=== PATIENT | male | born 1980 | race Caucasian/White ===

== ENCOUNTER 2023-08-12 21:24 | Emergency (ER) | payer OTHER, SELFPAY ==
[~2023-08-12] VITALS: Ht 177.8 cm; Wt 95.5 kg
[2023-08-12] MEDS ORDERED: NS 1,000 ML IV ONE (23:45)
[2023-08-13 00:32] LABS: BASO # 0.1 10^3/uL (0.0-0.2); BASO % 0.5 % (0.0-1.0); EOS # 0.2 10^3/uL (0.0-0.5); EOS % 1.9 % (0.0-3.0); HEMATOCRIT 42.5 % (42.0-52.0); HEMOGLOBIN 13.4 g/dl (13.5-17.5); LYMPH # 2.8 10^3/uL (1.5-5.0); LYMPH % 28.9 % (24.0-44.0); MEAN CORPUSCULAR HEMOGLOBIN 26.1 pg (27.0-33.0); MEAN CORPUSCULAR HGB CONC 31.5 g/dl (32.0-36.5); MEAN CORPUSCULAR VOLUME 82.8 fl (80.0-96.0); MONO # 0.9 10^3/uL (0.0-0.8); MONO % 9.3 % (2.0-8.0); NEUTROPHILS # 5.7 10^3/uL (1.5-8.5); NEUTROPHILS % 58.9 % (36.0-66.0); PLATELET COUNT, AUTOMATED 242 10^3/uL (150-450); RED BLOOD COUNT 5.13 10^6/uL (4.30-6.10); WHITE BLOOD COUNT 9.6 10^3/uL (4.0-10.0)
[2023-08-13 00:50] LABS: ETHYL ALCOHOL (ETHANOL) 0.003 % (0.000-0.010)
[2023-08-13 00:52] LABS: BLOOD UREA NITROGEN 10 MG/DL (9-23); CALCIUM LEVEL 9.9 MG/DL (8.5-10.1); CARBON DIOXIDE LEVEL 26 MMOL/L (20-31); CHLORIDE LEVEL 104 MMOL/L (98-107); CK-MB VALUE MASS < 1.0 NG/ML (<3.6); CPK CREATINE PHOSPHOKINASE 159 U/L (46-171); GLOMERULAR FILTRATION RATE > 60.0 (>60); GLUCOSE, FASTING 93 MG/DL (60-100); MB/CK RELATIVE INDEX 0.62 (< OR =4); POTASSIUM SERUM 4.1 MMOL/L (3.5-5.1); SODIUM LEVEL 137 MMOL/L (136-145)
[2023-08-13 00:54] LABS: THYROID STIMULATING HORMONE 0.734 uIU/ML (0.55-4.78)
[2023-08-13 05:21] LABS: CK-MB VALUE MASS < 1.0 NG/ML (<3.6); CPK CREATINE PHOSPHOKINASE 125 U/L (46-171)
[2023-08-13 06:18] LABS: BARBITURATES URINE NEGATIVE (NEGATIVE); BENZODIAZEPINES URINE NEGATIVE (NEGATIVE); CANNABINOIDS URINE NEGATIVE (NEGATIVE); METHADONE URINE NEGATIVE (NEGATIVE); OPIATES URINE NEGATIVE (NEGATIVE); PHENCYCLIDINE URINE NEGATIVE (NEGATIVE)
[2023-08-13 06:19] LABS: AMPHETAMINES LEVEL URINE POSITIVE (NEGATIVE); COCAINE METABOLITE URINE POSITIVE (NEGATIVE)
[2023-08-13 06:22] VITALS: BP 122/66; O2SAT 98
[2023-08-13 06:52] VITALS: TEMP 98
== END 2023-08-13 06:54 | disposition home or self-care (01) ==
LOC: M ED 21:24
DX: R55 Syncope and collapse (principal); F90.9 Attention-deficit hyperactivity disorder, unspecified type; F17.200 Nicotine dependence, unspecified, uncomplicated; F12.10 Cannabis abuse, uncomplicated; F10.10 Alcohol abuse, uncomplicated; Z91.040 Latex allergy status

== ENCOUNTER 2024-01-14 00:39 | Emergency (ER) | payer SELFPAY ==
[~2024-01-14] VITALS: Ht 177.8 cm; Wt 91.0 kg
[2024-01-14] MEDS ORDERED: ADDE30CA3 PO (00:50)
[2024-01-14] MEDS ORDERED: ADDE1TAB14 PO (00:50)
[2024-01-14] MEDS ORDERED: CLON2TAB14 PO (00:53)
[2024-01-14 01:10] LABS: BASO % 0.5 % (0.0-1.0); EOS # 0.2 10^3/uL (0.0-0.5); EOS % 2.4 % (0.0-3.0); HEMATOCRIT 41.5 % (42.0-52.0); HEMOGLOBIN 13.2 g/dl (13.5-17.5); LYMPH # 2.1 10^3/uL (1.5-5.0); LYMPH % 33.7 % (24.0-44.0); MEAN CORPUSCULAR HGB CONC 31.8 g/dl (32.0-36.5); MEAN CORPUSCULAR VOLUME 81.9 fl (80.0-96.0); MONO # 0.6 10^3/uL (0.0-0.8); NEUTROPHILS # 3.4 10^3/uL (1.5-8.5); NEUTROPHILS % 54.1 % (36.0-66.0); PLATELET COUNT, AUTOMATED 209 10^3/uL (150-450); RED BLOOD COUNT 5.07 10^6/uL (4.30-6.10); WHITE BLOOD COUNT 6.2 10^3/uL (4.0-10.0)
[2024-01-14 01:38] LABS: LIPASE 39 U/L (12-53)
[2024-01-14 01:41] LABS: ALBUMIN 3.7 G/DL (3.2-5.2); ALKALINE PHOSPHATASE 65 U/L (46-116); ALT/SGPT 21 U/L (7.0-40); AST/SGOT 19 U/L (<34); BILIRUBIN,DIRECT < 0.1 MG/DL (<0.4); BILIRUBIN,TOTAL 0.3 MG/DL (0.3-1.2); BLOOD UREA NITROGEN 10 MG/DL (9-23); CALCIUM LEVEL 8.6 MG/DL (8.5-10.1); CARBON DIOXIDE LEVEL 25 MMOL/L (20-31); CHLORIDE LEVEL 111 MMOL/L (98-107); CK-MB VALUE MASS < 1.0 NG/ML (<3.6); CPK CREATINE PHOSPHOKINASE 90 U/L (46-171); CREATININE FOR GFR 0.81 MG/DL (0.70-1.30); GLOMERULAR FILTRATION RATE > 60.0 (>60); GLUCOSE, FASTING 118 MG/DL (60-100); MB/CK RELATIVE INDEX 1.11 (< OR =4); POTASSIUM SERUM 4.1 MMOL/L (3.5-5.1); SODIUM LEVEL 142 MMOL/L (136-145); TOTAL PROTEIN 6.4 G/DL (5.7-8.2)
[2024-01-14 03:20] LABS: CK-MB VALUE MASS < 1.0 NG/ML (<3.6)
[2024-01-14 03:21] LABS: CPK CREATINE PHOSPHOKINASE 89 U/L (46-171); MB/CK RELATIVE INDEX 1.12 (< OR =4)
[2024-01-14] MEDS ORDERED: ISOVUE-370 76% 100ML VIAL As Ordered ONE (03:47)
[2024-01-14 05:10] LABS: BARBITURATES URINE NEGATIVE (NEGATIVE); BENZODIAZEPINES URINE NEGATIVE (NEGATIVE); COCAINE METABOLITE URINE NEGATIVE (NEGATIVE); METHADONE URINE NEGATIVE (NEGATIVE); OPIATES URINE NEGATIVE (NEGATIVE); PHENCYCLIDINE URINE NEGATIVE (NEGATIVE)
[2024-01-14 05:22] LABS: AMPHETAMINES LEVEL URINE POSITIVE (NEGATIVE); CANNABINOIDS URINE POSITIVE (NEGATIVE)
[2024-01-14 06:00] VITALS: BP 132/89; TEMP 98; O2SAT 99
== END 2024-01-14 06:36 | disposition home or self-care (01) ==
LOC: M ED 00:39
DX: R10.32 Left lower quadrant pain (principal); K76.0 Fatty (change of) liver, not elsewhere classified; F90.9 Attention-deficit hyperactivity disorder, unspecified type; F12.10 Cannabis abuse, uncomplicated; F17.200 Nicotine dependence, unspecified, uncomplicated; Z91.040 Latex allergy status; Z79.899 Other long term (current) drug therapy
CPT/HCPCS: 36415; 71045; 71275; 74177; 80053; 80307; 81001; 82248; 82550; 82553; 83690; 84484; 85025; 93005; 93041; 94760; 99285; Q9967

== ENCOUNTER 2024-04-13 15:07 | Emergency (ER) | payer OTHER, SELFPAY ==
[~2024-04-13] VITALS: Ht 177.8 cm; Wt 86.5 kg
[~2024-04-13 15:07] MED LIST: ADDE1TAB14 PO; ADDE30CA3 PO; CLON2TAB14 PO
[2024-04-13 18:01] VITALS: BP 120/84; TEMP 98.2; O2SAT 100
== END 2024-04-13 18:00 | disposition home or self-care (01) ==
LOC: M ED 15:07
DX: G56.31 Lesion of radial nerve, right upper limb (principal); F40.9 Phobic anxiety disorder, unspecified; F41.9 Anxiety disorder, unspecified; F17.200 Nicotine dependence, unspecified, uncomplicated; Z91.040 Latex allergy status; Z79.899 Other long term (current) drug therapy

== ENCOUNTER 2024-06-27 17:42 | Emergency (ER) | payer MEDICAID ==
[~2024-06-27] VITALS: Ht 177.8 cm; Wt 81.4 kg
[2024-06-27 17:45] VITALS: BP 130/87; TEMP 97; O2SAT 100
[2024-06-30] MEDS ORDERED: NEOM10DR2 AD (20:00)
== END 2024-06-27 19:27 | disposition left against medical advice (07) ==
LOC: M ED 17:42
DX: Z53.21 Procedure and treatment not carried out due to patient leaving prior to being seen by health care provider (principal)

== ENCOUNTER → 2024-09-11 | Outpatient (REF) | payer OTHER ==
[~2024-09-11] MED LIST changes: +NEOM10DR2 AD
[2024-09-11 14:02] LABS: HEMATOCRIT 42.2 % (42.0-52.0); HEMOGLOBIN 13.1 g/dl (13.5-17.5); MEAN CORPUSCULAR HEMOGLOBIN 25.6 pg (27.0-33.0); MEAN CORPUSCULAR VOLUME 82.4 fl (80.0-96.0); PLATELET COUNT, AUTOMATED 186 10^3/uL (150-450); RED BLOOD COUNT 5.12 10^6/uL (4.30-6.10); WHITE BLOOD COUNT 5.4 10^3/uL (4.0-10.0)
[2024-09-11 14:22] LABS: ALBUMIN 3.8 G/DL (3.2-5.2); ALKALINE PHOSPHATASE 65 U/L (40-129); ALT/SGPT 32 U/L (7.0-40); AST/SGOT 20 U/L (<34); BILIRUBIN,TOTAL 0.3 MG/DL (0.3-1.2); BLOOD UREA NITROGEN 11 MG/DL (9-23); CALCIUM LEVEL 8.7 MG/DL (8.5-10.1); CARBON DIOXIDE LEVEL 29 MMOL/L (20-31); CHLORIDE LEVEL 111 MMOL/L (98-107); CHOLESTEROL LEVEL 124 MG/DL (<200); CHOLESTEROL RISK RATIO 2.94 (<5); CREATININE FOR GFR 0.73 MG/DL (0.70-1.30); GLOMERULAR FILTRATION RATE > 60.0 (>60); GLUCOSE, FASTING 106 MG/DL (60-100); HDL CHOLESTEROL 42.1 MG/DL (>40); LDL CHOLESTEROL 68.1 MG/DL (<100); NON-HDL-C 81.9 MG/DL; POTASSIUM SERUM 4.6 MMOL/L (3.5-5.1); SODIUM LEVEL 147 MMOL/L (136-145); TOTAL PROTEIN 6.8 G/DL (5.7-8.2); TRIGLYCERIDES LEVEL 69 MG/DL (<150)
[2024-09-11 14:25] LABS: THYROID STIMULATING HORMONE 0.984 uIU/ML (0.55-4.78)
[2024-09-11 14:26] LABS: TOTAL 25(OH) VITAMIN D 32.4 NG/ML (20.0-100.0)
== END ==
LOC: M LAB REF 12:39
PROVIDERS: ATTEND Student in an Organized Health Care Education/Training Program
DX: Z00.01 Encounter for general adult medical examination with abnormal findings (principal)

== ENCOUNTER 2024-09-17 17:30 | Emergency (ER) | payer OTHER ==
[~2024-09-17] VITALS: Ht 177.8 cm; Wt 82.5 kg
[2024-09-17 19:36] VITALS: BP 128/85; TEMP 97.8; O2SAT 100
[2024-09-17] MEDS ORDERED: TRIA1CR80 TOP (20:37)
== END 2024-09-17 20:55 | disposition home or self-care (01) ==
LOC: M ED 17:30
DX: L20.9 Atopic dermatitis, unspecified (principal); Z88.8 Allergy status to other drugs, medicaments and biological substances; Z91.040 Latex allergy status; Z79.899 Other long term (current) drug therapy; Z79.52 Long term (current) use of systemic steroids

== ENCOUNTER 2024-09-25 18:57 | Emergency (ER) | payer OTHER ==
[~2024-09-25] VITALS: Ht 177.8 cm; Wt 80.5 kg
[~2024-09-25 18:57] MED LIST changes: +TRIA1CR80 TOP
[2024-09-25 19:36] LABS: BASO % 0.9 % (0.0-1.0); EOS # 0.3 10^3/uL (0.0-0.5); EOS % 5.4 % (0.0-3.0); HEMATOCRIT 41.4 % (42.0-52.0); LYMPH # 1.1 10^3/uL (1.5-5.0); LYMPH % 24.4 % (24.0-44.0); MEAN CORPUSCULAR HEMOGLOBIN 25.6 pg (27.0-33.0); MEAN CORPUSCULAR HGB CONC 31.4 g/dl (32.0-36.5); MEAN CORPUSCULAR VOLUME 81.7 fl (80.0-96.0); MONO # 0.6 10^3/uL (0.0-0.8); MONO % 13.1 % (2.0-8.0); NEUTROPHILS # 2.6 10^3/uL (1.5-8.5); PLATELET COUNT, AUTOMATED 183 10^3/uL (150-450); RED BLOOD COUNT 5.07 10^6/uL (4.30-6.10); WHITE BLOOD COUNT 4.6 10^3/uL (4.0-10.0)
[2024-09-25 19:51] LABS: VENOUS BASE EXCESS 1.4 (-2.0-2.0); VENOUS HCO3 28.3 MMOL/L (23.0-27.0); VENOUS O2 SATURATION 46.5 % (60.0-80.0); VENOUS PARTIAL PRESSURE CO2 54.5 mmHg (38.0-50.0); VENOUS PARTIAL PRESSURE O2 25.7 mmHg (30.0-50.0); VENOUS PH 7.334 UNITS (7.330-7.430); VENOUS STANDARD HCO3 24.5 MMOL/L
[2024-09-25 20:00] LABS: ETHYL ALCOHOL (ETHANOL) 0.006 % (0.000-0.010)
[2024-09-25 20:02] LABS: BLOOD UREA NITROGEN 19 MG/DL (9-23); CALCIUM LEVEL 9.5 MG/DL (8.5-10.1); CARBON DIOXIDE LEVEL 29 MMOL/L (20-31); CHLORIDE LEVEL 108 MMOL/L (98-107); CK-MB VALUE MASS < 1.0 NG/ML (<3.6); CPK CREATINE PHOSPHOKINASE 89 U/L (46-171); CREATININE FOR GFR 0.72 MG/DL (0.70-1.30); GLOMERULAR FILTRATION RATE > 60.0 (>60); GLUCOSE, FASTING 96 MG/DL (60-100); MAGNESIUM LEVEL 1.8 MG/DL (1.8-2.4); MB/CK RELATIVE INDEX 1.12 (< OR =4); POTASSIUM SERUM 4.1 MMOL/L (3.5-5.1); SODIUM LEVEL 147 MMOL/L (136-145)
[2024-09-25 20:03] LABS: FREE T4 1.39 NG/DL (0.89-1.76)
[2024-09-25 20:04] LABS: THYROID STIMULATING HORMONE 0.712 uIU/ML (0.55-4.78)
[2024-09-25 20:15] LABS: INR 0.96; PARTIAL THROMBOPLASTIN TIME 28.7 SECONDS (24.8-34.2); PROTHROMBIN TIME 13.1 SECONDS (12.5-14.5)
[2024-09-25] MEDS ORDERED: ISOVUE-370 76% 100ML VIAL As Ordered ONE (20:26)
[2024-09-25 22:05] LABS: BARBITURATES URINE NEGATIVE (NEGATIVE); BENZODIAZEPINES URINE NEGATIVE (NEGATIVE); CANNABINOIDS URINE NEGATIVE (NEGATIVE); COCAINE METABOLITE URINE NEGATIVE (NEGATIVE); METHADONE URINE NEGATIVE (NEGATIVE); OPIATES URINE NEGATIVE (NEGATIVE); PHENCYCLIDINE URINE NEGATIVE (NEGATIVE)
[2024-09-25 22:10] LABS: AMPHETAMINES LEVEL URINE POSITIVE (NEGATIVE)
[2024-09-25 22:45] VITALS: TEMP 97.6
[2024-09-25 23:30] VITALS: BP 130/76; O2SAT 100
== END 2024-09-26 00:02 | disposition home or self-care (01) ==
LOC: M ED 18:57
DX: R55 Syncope and collapse (principal); F41.9 Anxiety disorder, unspecified; M85.80 Other specified disorders of bone density and structure, unspecified site; M47.892 Other spondylosis, cervical region; F90.9 Attention-deficit hyperactivity disorder, unspecified type; F17.200 Nicotine dependence, unspecified, uncomplicated; F12.10 Cannabis abuse, uncomplicated; Z88.8 Allergy status to other drugs, medicaments and biological substances; Z91.040 Latex allergy status; Z79.899 Other long term (current) drug therapy
CPT/HCPCS: 36415; 70450; 70496; 70498; 71045; 72125; 80048; 80307; 82077; 82550; 82553; 82803; 83735; 84439; 84443; 84484; 85025; 85610; 85730; 87486; 87581; 87633; 87798; 93005; 93041; 94760; 99285; Q9967

== ENCOUNTER 2024-10-18 15:40 | Emergency (ER) | payer OTHER ==
[~2024-10-18] VITALS: Ht 177.8 cm; Wt 79.8 kg
[2024-10-18 16:17] LABS: HEMATOCRIT 43.4 % (42.0-52.0); HEMOGLOBIN 13.3 g/dl (13.5-17.5); MEAN CORPUSCULAR HEMOGLOBIN 25.6 pg (27.0-33.0); MEAN CORPUSCULAR HGB CONC 30.6 g/dl (32.0-36.5); MEAN CORPUSCULAR VOLUME 83.5 fl (80.0-96.0); PLATELET COUNT, AUTOMATED 192 10^3/uL (150-450); WHITE BLOOD COUNT 6.7 10^3/uL (4.0-10.0)
[2024-10-18 16:40] LABS: ETHYL ALCOHOL (ETHANOL) < 0.003 % (0.000-0.010)
[2024-10-18 16:41] LABS: SALICYLATE LEVEL < 3.0 MG/DL (<30)
[2024-10-18 16:42] LABS: ALBUMIN 3.9 G/DL (3.2-5.2); ALKALINE PHOSPHATASE 78 U/L (40-129); ALT/SGPT 40 U/L (7.0-40); AST/SGOT 20 U/L (<34); BILIRUBIN,DIRECT 0.1 MG/DL (<0.4); BILIRUBIN,TOTAL 0.3 MG/DL (0.3-1.2); BLOOD UREA NITROGEN 13 MG/DL (9-23); CALCIUM LEVEL 9.7 MG/DL (8.5-10.1); CARBON DIOXIDE LEVEL 29 MMOL/L (20-31); CHLORIDE LEVEL 111 MMOL/L (98-107); CREATININE FOR GFR 0.81 MG/DL (0.70-1.30); GLOMERULAR FILTRATION RATE > 60.0 (>60); GLUCOSE, FASTING 112 MG/DL (60-100); POTASSIUM SERUM 4.1 MMOL/L (3.5-5.1); SODIUM LEVEL 148 MMOL/L (136-145)
[2024-10-18 17:47] LABS: BARBITURATES URINE NEGATIVE (NEGATIVE); BENZODIAZEPINES URINE NEGATIVE (NEGATIVE); CANNABINOIDS URINE NEGATIVE (NEGATIVE); COCAINE METABOLITE URINE NEGATIVE (NEGATIVE); METHADONE URINE NEGATIVE (NEGATIVE); OPIATES URINE NEGATIVE (NEGATIVE); PHENCYCLIDINE URINE NEGATIVE (NEGATIVE)
[2024-10-18 17:49] LABS: AMPHETAMINES LEVEL URINE POSITIVE (NEGATIVE)
[2024-10-18 20:57] VITALS: BP 148/87; TEMP 98.7; O2SAT 100
== END 2024-10-18 20:58 | disposition home or self-care (01) ==
LOC: M ED 15:40
DX: Z04.6 Encounter for general psychiatric examination, requested by authority (principal); F90.9 Attention-deficit hyperactivity disorder, unspecified type; Z91.040 Latex allergy status; Z88.8 Allergy status to other drugs, medicaments and biological substances; Z79.899 Other long term (current) drug therapy

== ENCOUNTER 2024-10-23 19:18 | Emergency (ER) | payer OTHER ==
[~2024-10-23] VITALS: Ht 177.8 cm; Wt 81.2 kg
[2024-10-23 19:25] VITALS: BP 129/84; TEMP 99.1; O2SAT 99
== END 2024-10-23 21:00 | disposition left against medical advice (07) ==
LOC: M ED 19:18
DX: Z53.21 Procedure and treatment not carried out due to patient leaving prior to being seen by health care provider (principal)

== ENCOUNTER 2024-11-15 15:01 | Emergency (ER) | payer OTHER ==
[~2024-11-15] VITALS: Ht 177.8 cm; Wt 79.9 kg
[2024-11-15] MEDS ORDERED: AMPH1CAP5 (15:17)
[2024-11-15] MEDS: diphenhydrAMINE 50MG CAP PO ONE (18:58)
[2024-11-15] MEDS: methylPREDNISolone 125MG 2ML VIAL IV ONE (18:58)
[2024-11-15] MEDS: NS (Normal Saline) 0.9% 1,000 ML IV ONE (18:59)
[2024-11-15 19:15] LABS: C REACTIVE PROTEIN QUANTITATIV 2.38 MG/DL (<1.0)
[2024-11-15 19:22] LABS: ALBUMIN 3.9 G/DL (3.2-5.2); ALKALINE PHOSPHATASE 72 U/L (40-129); ALT/SGPT 38 U/L (7.0-40); AST/SGOT 51 U/L (<34); BILIRUBIN,DIRECT 0.1 MG/DL (<0.4); BILIRUBIN,TOTAL 0.5 MG/DL (0.3-1.2); BLOOD UREA NITROGEN 16 MG/DL (9-23); CALCIUM LEVEL 9.3 MG/DL (8.5-10.1); CARBON DIOXIDE LEVEL 28 MMOL/L (20-31); CHLORIDE LEVEL 108 MMOL/L (98-107); CPK CREATINE PHOSPHOKINASE 167 U/L (46-171); CREATININE FOR GFR 0.69 MG/DL (0.70-1.30); GLOMERULAR FILTRATION RATE > 60.0 (>60); GLUCOSE, FASTING 93 MG/DL (60-100); POTASSIUM SERUM 5.4 MMOL/L (3.5-5.1); RHEUMATOID FACTOR QUANT < 3.5 IU/ML (<14); SODIUM LEVEL 143 MMOL/L (136-145)
[2024-11-15 19:44] LABS: BASO % 0.8 % (0.0-1.0); EOS # 0.4 10^3/uL (0.0-0.5); EOS % 6.8 % (0.0-3.0); HEMATOCRIT 38.4 % (42.0-52.0); HEMOGLOBIN 12.1 g/dl (13.5-17.5); LYMPH # 1.4 10^3/uL (1.5-5.0); LYMPH % 26.1 % (24.0-44.0); MEAN CORPUSCULAR HEMOGLOBIN 26.2 pg (27.0-33.0); MEAN CORPUSCULAR HGB CONC 31.5 g/dl (32.0-36.5); MEAN CORPUSCULAR VOLUME 83.1 fl (80.0-96.0); MONO # 0.7 10^3/uL (0.0-0.8); MONO % 13.8 % (2.0-8.0); NEUTROPHILS # 2.8 10^3/uL (1.5-8.5); NEUTROPHILS % 52.1 % (36.0-66.0); PLATELET COUNT, AUTOMATED 170 10^3/uL (150-450); RED BLOOD COUNT 4.62 10^6/uL (4.30-6.10); WHITE BLOOD COUNT 5.3 10^3/uL (4.0-10.0)
[2024-11-15 19:54] LABS: ERYTHROCYTE SEDIMENTATION RATE 12 mm/hr (0-15)
[2024-11-15] MEDS ORDERED: DOXY-441 PO (20:34)
[2024-11-15] MEDS ORDERED: MEDR4TAB PO (20:35)
[2024-11-15] MEDS ORDERED: CETI10CH PO (20:35)
[2024-11-15] MEDS ORDERED: NYST-38 PO (20:36)
[2024-11-15] MEDS ORDERED: PERM60CR8 TOP (20:36)
[2024-11-15] MEDS ORDERED: FLUC150T9 PO (20:38)
[2024-11-15 21:30] VITALS: BP 113/65; TEMP 97.7; O2SAT 98
[2024-11-18 13:32] LABS: ANA SCREEN, IFA NEGATIVE (NEGATIVE)
== END 2024-11-15 21:47 | disposition home or self-care (01) ==
LOC: M ED 15:01
DX: B86 Scabies (principal); B37.81 Candidal esophagitis; L53.9 Erythematous condition, unspecified; L20.9 Atopic dermatitis, unspecified; F90.9 Attention-deficit hyperactivity disorder, unspecified type; J45.909 Unspecified asthma, uncomplicated; F41.9 Anxiety disorder, unspecified; F17.200 Nicotine dependence, unspecified, uncomplicated; F12.10 Cannabis abuse, uncomplicated; Z88.8 Allergy status to other drugs, medicaments and biological substances; Z91.040 Latex allergy status; Z79.899 Other long term (current) drug therapy
CPT/HCPCS: 80048; 80076; 82550; 84132; 85025; 85652; 86038; 86140; 86431; 87468; 87469; 87478; 87484; 87801; 96374; 99284; J2919

== ENCOUNTER 2024-12-25 10:22 | Emergency (ER) | payer OTHER ==
[~2024-12-25] VITALS: Ht 177.8 cm; Wt 76.6 kg
[~2024-12-25 10:22] MED LIST changes: +AMPH1CAP5; +CETI10CH PO; +DOXY-441 PO; +FLUC150T9 PO; +MEDR4TAB PO; +NYST-38 PO; +PERM60CR8 TOP
[2024-12-25] MEDS ORDERED: ISOVUE-370 76% 100ML VIAL As Ordered ONE (11:11)
[2024-12-25 11:40] LABS: BASO % 0.7 % (0.0-1.0); HEMATOCRIT 41.7 % (42.0-52.0); HEMOGLOBIN 13.2 g/dl (13.5-17.5); LYMPH % 24.8 % (24.0-44.0); MEAN CORPUSCULAR HEMOGLOBIN 25.8 pg (27.0-33.0); MEAN CORPUSCULAR HGB CONC 31.7 g/dl (32.0-36.5); MEAN CORPUSCULAR VOLUME 81.6 fl (80.0-96.0); MONO # 0.6 10^3/uL (0.0-0.8); MONO % 14.6 % (2.0-8.0); NEUTROPHILS # 2.4 10^3/uL (1.5-8.5); NEUTROPHILS % 58.4 % (36.0-66.0); PLATELET COUNT, AUTOMATED 168 10^3/uL (150-450); RED BLOOD COUNT 5.11 10^6/uL (4.30-6.10); WHITE BLOOD COUNT 4.1 10^3/uL (4.0-10.0)
[2024-12-25 12:01] LABS: ETHYL ALCOHOL (ETHANOL) < 0.003 % (0.000-0.010)
[2024-12-25 12:03] LABS: ALBUMIN 3.5 G/DL (3.2-5.2); ALKALINE PHOSPHATASE 63 U/L (40-129); ALT/SGPT 31 U/L (7.0-40); AST/SGOT 15 U/L (<34); BILIRUBIN,DIRECT 0.2 MG/DL (<0.4); BILIRUBIN,TOTAL 0.4 MG/DL (0.3-1.2); BLOOD UREA NITROGEN 12 MG/DL (9-23); CALCIUM LEVEL 9.3 MG/DL (8.5-10.1); CARBON DIOXIDE LEVEL 27 MMOL/L (20-31); CHLORIDE LEVEL 104 MMOL/L (98-107); CREATININE FOR GFR 0.63 MG/DL (0.70-1.30); GLOMERULAR FILTRATION RATE > 90.0 (>60); GLUCOSE, FASTING 116 MG/DL (60-100); POTASSIUM SERUM 4.4 MMOL/L (3.5-5.1); SALICYLATE LEVEL < 3.0 MG/DL (<30); SODIUM LEVEL 140 MMOL/L (136-145); TOTAL PROTEIN 6.4 G/DL (5.7-8.2)
[2024-12-25] MEDS: LIDOCAINE 2% 5ML JELLY UROJET TOP ONE (12:41)
[2024-12-25] MEDS: levETIRAcetam INJection 1,000 MG in IV 1 EA IV ONE (13:15)
[2024-12-25] MEDS: dexAMETHasone 20MG/5ML VIAL IV ONE (14:31)
[2024-12-25] MEDS: NS (Normal Saline) 0.9% 1,000 ML IV SCH (14:31)
[2024-12-25 14:44] LABS: Trichomonas vaginalis (AMP) NOT DETECTED (NEGATIVE)
[2024-12-25 14:59] VITALS: BP 127/67; TEMP 98; O2SAT 99
[2024-12-25 15:08] LABS: GC DNA AMPLIFICATION NEGATIVE (NEGATIVE)
[2024-12-25 15:43] LABS: AMPHETAMINES LEVEL URINE NEGATIVE (NEGATIVE); BARBITURATES URINE NEGATIVE (NEGATIVE); BENZODIAZEPINES URINE NEGATIVE (NEGATIVE); CANNABINOIDS URINE NEGATIVE (NEGATIVE); COCAINE METABOLITE URINE NEGATIVE (NEGATIVE); METHADONE URINE NEGATIVE (NEGATIVE); OPIATES URINE NEGATIVE (NEGATIVE); PHENCYCLIDINE URINE NEGATIVE (NEGATIVE)
== END 2024-12-25 15:01 | disposition short-term general hospital (02) ==
LOC: M ED 10:22 → EDBD 10:22 → M ED 15:01
DX: R90.0 Intracranial space-occupying lesion found on diagnostic imaging of central nervous system (principal); G23.8 Other specified degenerative diseases of basal ganglia; F32.A Depression, unspecified; F41.9 Anxiety disorder, unspecified; F90.9 Attention-deficit hyperactivity disorder, unspecified type; F12.10 Cannabis abuse, uncomplicated; F17.200 Nicotine dependence, unspecified, uncomplicated; Z79.899 Other long term (current) drug therapy; Z88.8 Allergy status to other drugs, medicaments and biological substances; Z91.040 Latex allergy status
CPT/HCPCS: 70450; 70496; 70498; 80047; 80048; 80076; 80143; 80307; 82077; 85025; 86780; 87486; 87581; 87633; 87661; 87798; 87810; 87850; 93005; 96361; 96365; 96375; 99285; J1100; J1953; Q9967

== ENCOUNTER → 2025-04-02 | Outpatient (CLI) | payer OTHER ==
[~2025-04-02] MED LIST changes: +ACET-907 PO; -AMPH1CAP5; +AMPH1CAP5 PO; +ATOV5SUS PO; +BIKT1TAB PO; +CLEO300C2 PO; +DOXY100T27 PO; +FAMO40TA3 PO; +GNPTAB36 PO; +LEUC25TA PO; +MELA3TAB30 PO; +PYRI25TA PO; +TRAZ-252 PO
[2025-04-02 16:00] LABS: ALT/SGPT 17.0 U/L (7.0-40); AST/SGOT 13.0 U/L (<34); CALCIUM LEVEL 10.6 MG/DL (8.5-10.1); CARBON DIOXIDE LEVEL 29.0 MMOL/L (20-31); CHLORIDE LEVEL 103.0 MMOL/L (98-107); CREATININE FOR GFR 1.26 MG/DL (0.70-1.30); GLOMERULAR FILTRATION RATE 72.1 (>60); POTASSIUM SERUM 4.9 MMOL/L (3.5-5.1); SODIUM LEVEL 141.0 MMOL/L (136-145)
[2025-04-04 22:33] LABS: HIV-1 RNA PCR QUANT 2 54 copies/mL (NOT DETECTED); HIV-1 RNA PCR QUANT 3 1.73 (NOT DETECTED)
[2025-04-05 19:41] LABS: % CD4 17 % (30-61); %CD8 47 % (12-42); ABSOLUTE CD4 CELLS 274 cells/uL (490-1740); ABSOLUTE CD8 CELLS 758 cells/uL (180-1170); ABSOLUTE LYMPHOCYTES 1616 cells/uL (850-3900); CD4 CD8 RATIO 0.36 (0.86-5.00)
== END ==
LOC: M PLALAB 11:55
PROVIDERS: ATTEND Internal Medicine Infectious Disease
DX: B20 Human immunodeficiency virus [HIV] disease (principal)

== ENCOUNTER → 2025-04-13 | Outpatient (CLI) | payer OTHER ==
[~2025-04-13] MED LIST changes: +PROHANCE 279.3MG/ML 15ML VIAL ONE
== END ==
LOC: M PLAIMG 09:06
PROVIDERS: ATTEND Physician Assistant
DX: B58.2 Toxoplasma meningoencephalitis (principal)
CPT/HCPCS: 70553; A9576

== ENCOUNTER → 2025-07-02 | Outpatient (CLI) | payer OTHER ==
[~2025-07-02] MED LIST changes: -PROHANCE 279.3MG/ML 15ML VIAL ONE
[2025-07-02 15:35] LABS: ALT/SGPT 19 U/L (7.0-40); AST/SGOT 14 U/L (<34); CALCIUM LEVEL 10.0 MG/DL (8.5-10.1); CARBON DIOXIDE LEVEL 29 MMOL/L (20-31); CHLORIDE LEVEL 107 MMOL/L (98-107); CREATININE FOR GFR 1.06 MG/DL (0.70-1.30); GLOMERULAR FILTRATION RATE 88.8 (>60); POTASSIUM SERUM 5.4 MMOL/L (3.5-5.1); SODIUM LEVEL 143 MMOL/L (136-145)
[2025-07-04 18:44] LABS: % CD4 24 % (30-61); %CD8 45 % (12-42); ABSOLUTE CD4 CELLS 290 cells/uL (490-1740); ABSOLUTE CD8 CELLS 545 cells/uL (180-1170); ABSOLUTE LYMPHOCYTES 1215 cells/uL (850-3900); CD4 CD8 RATIO 0.53 (0.86-5.00)
[2025-07-05 01:02] LABS: HIV-1 RNA PCR QUANT 2 NOT DETECTED copies/mL (NOT DETECTED); HIV-1 RNA PCR QUANT 3 NOT DETECTED (NOT DETECTED)
== END ==
LOC: M PLALAB 12:33
PROVIDERS: ATTEND Internal Medicine Infectious Disease
DX: A53.9 Syphilis, unspecified (principal); B20 Human immunodeficiency virus [HIV] disease

== ENCOUNTER → 2025-07-27 | Outpatient (CLI) | payer OTHER ==
[~2025-07-27] MED LIST changes: +CLOT1CRE56 TOP; +FLUO1TAB3 PO; +HYDR2.5C TOP; +PANT40TA29 PO; +PROHANCE 279.3MG/ML 15ML VIAL As Ordered ONE; +SULF500T56 PO; +TRAZ-257 PO
== END ==
LOC: M RAD 07:50
PROVIDERS: ATTEND Neurological Surgery
DX: B58.2 Toxoplasma meningoencephalitis (principal)
CPT/HCPCS: 70553; A9579

== ENCOUNTER 2025-07-29 14:36 | Inpatient (IN) | payer OTHER ==
[~2025-07-29] VITALS: Ht 177.8 cm; Wt 82.0 kg
[~2025-07-29 14:36] MED LIST changes: -CLOT1CRE56 TOP; -FLUO1TAB3 PO; -HYDR2.5C TOP; -PANT40TA29 PO; -PROHANCE 279.3MG/ML 15ML VIAL As Ordered ONE; -SULF500T56 PO; -TRAZ-257 PO
[2025-07-29] MEDS ORDERED: FLUO1TAB3 PO (15:05)
[2025-07-29] MEDS ORDERED: SULF500T56 PO (15:05)
[2025-07-29] MEDS ORDERED: TRAZ-257 PO (15:05)
[2025-07-29] MEDS ORDERED: PANT40TA29 PO (15:05)
[2025-07-29] MEDS ORDERED: HYDR2.5C TOP (15:06)
[2025-07-29 15:25] LABS: BASO # 0.1 10^3/uL (0.0-0.2); BASO % 0.7 % (0.0-1.0); EOS # 0.1 10^3/uL (0.0-0.5); EOS % 0.8 % (0.0-3.0); LYMPH # 1.2 10^3/uL (1.5-5.0); LYMPH % 13.9 % (24.0-44.0); MONO # 0.7 10^3/uL (0.0-0.8); MONO % 8.0 % (2.0-8.0); NEUTROPHILS # 6.7 10^3/uL (1.5-8.5); NEUTROPHILS % 76.0 % (36.0-66.0); PLATELET COUNT, AUTOMATED 294 10^3/uL (150-450)
[2025-07-29 15:47] LABS: OSMOLALITY SERUM 293 MOSM/KG (275-295)
[2025-07-29 15:51] LABS: ETHYL ALCOHOL (ETHANOL) 0.005 % (0.000-0.010)
[2025-07-29 15:53] LABS: ALT/SGPT 15 U/L (7.0-40); AST/SGOT 17 U/L (<34); CALCIUM LEVEL 9.6 MG/DL (8.5-10.1); CARBON DIOXIDE LEVEL 29 MMOL/L (20-31); CHLORIDE LEVEL 109 MMOL/L (98-107); CREATININE FOR GFR 1.06 MG/DL (0.70-1.30); GLOMERULAR FILTRATION RATE 88.8 (>60); MAGNESIUM LEVEL 2.0 MG/DL (1.8-2.4); POTASSIUM SERUM 4.7 MMOL/L (3.5-5.1); SODIUM LEVEL 145 MMOL/L (136-145)
[2025-07-29] MEDS ORDERED: CLOT1CRE56 TOP (16:53)
[2025-07-29] MEDS ORDERED: HOME MED LIST COMPLETE! XX SCH (16:55)
[2025-07-29] MEDS ORDERED: MAALOX 30 ML SUSP *UDC PO PRN (17:40)
[2025-07-29] MEDS ORDERED: MOM 30 ML SUSPENSION UDC PO PRN (17:40)
[2025-07-29] MEDS: traZODone 100 MG TAB PO SCH (22:21)
[2025-07-29] MEDS: SULFADIAZINE 500 MG PO SCH (22:21)
[2025-07-29] MEDS: CLOTRIMAZOLE 1% TOPICAL CREAM 30 GM TOP SCH (22:22)
[2025-07-29] MEDS: ANUSOL HC CREAM 30 GM TOP SCH (22:22)
[2025-07-30] MEDS: ENOXAPARIN 40 MG/0.4 ML SYRINGE (J1650 PER 10MG) SC SCH (08:00)
[2025-07-30] MEDS: FLUoxetine 20 MG CAP PO SCH (08:01)
[2025-07-30] MEDS: PANTOPRAZOLE 40MG TAB PO SCH (08:01)
[2025-07-30 08:07] LABS: CALCIUM LEVEL 9.6 MG/DL (8.5-10.1); CARBON DIOXIDE LEVEL 26.0 MMOL/L (20-31); CHLORIDE LEVEL 110.0 MMOL/L (98-107); CREATININE FOR GFR 1.07 MG/DL (0.70-1.30); GLOMERULAR FILTRATION RATE 87.8 (>60); MAGNESIUM LEVEL 2.1 MG/DL (1.8-2.4); POTASSIUM SERUM 4.4 MMOL/L (3.5-5.1); SODIUM LEVEL 145.0 MMOL/L (136-145)
[2025-07-30] MEDS ORDERED: PROHANCE 279.3MG/ML 15ML VIAL As Ordered ONE (12:02)
[2025-07-30 14:00] VITALS: BP 122/78; TEMP 99.6; O2SAT 99
[2025-07-30 20:02] VITALS: BP 107/64; TEMP 99.5; O2SAT 97
[2025-07-30] MEDS: NICOTINE 21 MG/24 HR 1 EA TRANSDERMAL TD SCH (21:00)
[2025-07-31 06:23] VITALS: BP 118/68; TEMP 99.1; O2SAT 98
[2025-07-31 07:06] LABS: VITAMIN B12 LEVEL 496 PG/ML (211-911)
[2025-07-31 12:20] VITALS: BP 119/79; TEMP 99.8; O2SAT 98
[2025-07-31 14:30] VITALS: BP 139/63; TEMP 98.8; O2SAT 97
[2025-07-31 15:30] VITALS: BP 135/70; TEMP 98.4; O2SAT 97
[2025-07-31 16:00] VITALS: BP 121/77; TEMP 99.5; O2SAT 96
[2025-07-31 16:23] LABS: APPEARANCE, CSF CLEAR (CLEAR); COLOR, CSF COLORLESS (COLORLESS); CSF TUBE# CELL CNT TUBE 4
[2025-07-31 16:24] LABS: APPEARANCE, CSF CLEAR (CLEAR); COLOR, CSF COLORLESS (COLORLESS); CSF TUBE# CELL CNT TUBE 1
[2025-07-31 16:44] LABS: CSF TUBE# TP TUBE 2; TOTAL PROTEIN,CSF 44.7 MG/DL (15-45)
[2025-07-31 16:47] LABS: CSF TUBE# GLU TUBE 2; GLUCOSE CSF 78.0 MG/DL (40-70)
[2025-07-31 20:12] VITALS: BP 120/80; TEMP 98.7; O2SAT 97
[2025-07-31] MEDS: GABAPENTIN 300 MG CAP PO SCH (20:51)
[2025-07-31] MEDS: BACTRIM 160MG/800MG DS TAB PO SCH (20:51)
[2025-08-01 05:20] VITALS: BP 133/78; TEMP 98.2; O2SAT 99
[2025-08-01] MEDS: FLUoxetine 20 MG CAP PO SCH (09:21)
[2025-08-01 14:00] VITALS: BP 135/72; TEMP 98.5; O2SAT 97
[2025-08-01 21:04] VITALS: BP 109/72; TEMP 99.6; O2SAT 99
[2025-08-01] MEDS: ACETAMINOPHEN 325 MG TAB PO PRN (21:23)
[2025-08-02 07:30] VITALS: BP 119/75; TEMP 98.6; O2SAT 99
[2025-08-02 07:41] LABS: BASO # 0.1 10^3/uL (0.0-0.2); BASO % 1.4 % (0.0-1.0); EOS # 0.1 10^3/uL (0.0-0.5); EOS % 1.4 % (0.0-3.0); LYMPH # 1.5 10^3/uL (1.5-5.0); LYMPH % 19.4 % (24.0-44.0); MONO # 0.9 10^3/uL (0.0-0.8); MONO % 10.7 % (2.0-8.0); NEUTROPHILS # 5.3 10^3/uL (1.5-8.5); NEUTROPHILS % 66.5 % (36.0-66.0); PLATELET COUNT, AUTOMATED 264 10^3/uL (150-450)
[2025-08-02 08:15] LABS: CALCIUM LEVEL 9.6 MG/DL (8.5-10.1); CARBON DIOXIDE LEVEL 29.0 MMOL/L (20-31); CHLORIDE LEVEL 109.0 MMOL/L (98-107); CREATININE FOR GFR 1.18 MG/DL (0.70-1.30); GLOMERULAR FILTRATION RATE 78.0 (>60); MAGNESIUM LEVEL 2.2 MG/DL (1.8-2.4); POTASSIUM SERUM 4.9 MMOL/L (3.5-5.1); SODIUM LEVEL 145.0 MMOL/L (136-145)
[2025-08-02 14:00] VITALS: BP 95/54; TEMP 99.6; O2SAT 97
[2025-08-02 21:03] VITALS: BP 140/63; TEMP 99.6; O2SAT 98
[2025-08-03 06:22] VITALS: BP 116/85; TEMP 98.1; O2SAT 98
[2025-08-03 06:43] LABS: BASO # 0.1 10^3/uL (0.0-0.2); BASO % 1.3 % (0.0-1.0); EOS # 0.1 10^3/uL (0.0-0.5); EOS % 1.4 % (0.0-3.0); LYMPH # 1.6 10^3/uL (1.5-5.0); LYMPH % 22.5 % (24.0-44.0); MONO # 0.9 10^3/uL (0.0-0.8); MONO % 13.0 % (2.0-8.0); NEUTROPHILS # 4.3 10^3/uL (1.5-8.5); NEUTROPHILS % 61.1 % (36.0-66.0); PLATELET COUNT, AUTOMATED 266 10^3/uL (150-450)
[2025-08-03 07:05] LABS: CALCIUM LEVEL 9.7 MG/DL (8.5-10.1); CARBON DIOXIDE LEVEL 30.0 MMOL/L (20-31); CHLORIDE LEVEL 105.0 MMOL/L (98-107); CREATININE FOR GFR 1.24 MG/DL (0.70-1.30); GLOMERULAR FILTRATION RATE 73.5 (>60); MAGNESIUM LEVEL 2.2 MG/DL (1.8-2.4); POTASSIUM SERUM 4.5 MMOL/L (3.5-5.1); SODIUM LEVEL 141.0 MMOL/L (136-145)
[2025-08-03 14:00] VITALS: BP 110/70; TEMP 97.6; O2SAT 98
[2025-08-03 20:47] VITALS: BP 116/57; TEMP 98.8; O2SAT 98
[2025-08-03 22:45] LABS: CMV QUANT DNA PCR (PLASMA) 340 IU/mL; log10 CMV QN DNA P1 2.53 log IU/mL
[2025-08-04 06:34] VITALS: BP 111/69; TEMP 98.5; O2SAT 94
[2025-08-04 08:28] LABS: BASO # 0.1 10^3/uL (0.0-0.2); BASO % 1.1 % (0.0-1.0); EOS # 0.1 10^3/uL (0.0-0.5); EOS % 1.3 % (0.0-3.0); LYMPH # 1.6 10^3/uL (1.5-5.0); LYMPH % 19.7 % (24.0-44.0); MONO # 0.8 10^3/uL (0.0-0.8); MONO % 9.8 % (2.0-8.0); NEUTROPHILS # 5.4 10^3/uL (1.5-8.5); NEUTROPHILS % 67.5 % (36.0-66.0); PLATELET COUNT, AUTOMATED 266 10^3/uL (150-450)
[2025-08-04 08:52] LABS: CALCIUM LEVEL 9.7 MG/DL (8.5-10.1); CARBON DIOXIDE LEVEL 27.0 MMOL/L (20-31); CHLORIDE LEVEL 105.0 MMOL/L (98-107); CREATININE FOR GFR 1.06 MG/DL (0.70-1.30); GLOMERULAR FILTRATION RATE 88.8 (>60); MAGNESIUM LEVEL 2.0 MG/DL (1.8-2.4); POTASSIUM SERUM 4.9 MMOL/L (3.5-5.1); SODIUM LEVEL 140.0 MMOL/L (136-145)
[2025-08-04] MEDS ORDERED: GABA-1172 PO (11:58)
[2025-08-04] MEDS ORDERED: HYDR-643 PO (11:58)
[2025-08-04] MEDS ORDERED: FLUO-365 PO (12:02)
[2025-08-06 17:07] LABS: VITAMIN B1 LEVEL WHOLE BLOOD 122.0 nmol/L (78-185); VITAMIN B6,PYRIDOXAL PHOSPHATE 7.9 ng/mL (2.1-21.7)
== END 2025-08-04 13:40 | disposition home health service (06) | DRG 892 ==
LOC: M ED 14:36 → EDBD 14:36 → M ED INP 17:37 → M MS5PR 07-30 13:45
PROVIDERS: ADMIT Student in an Organized Health Care Education/Training Program; ATTEND Internal Medicine
PROC: 009U3ZX Drainage of Spinal Canal, Percutaneous Approach, Diagnostic (ICD-10-PCS; principal; 2025-07-31 15:00)
DX: B58.2 Toxoplasma meningoencephalitis (principal); B20 Human immunodeficiency virus [HIV] disease; G93.6 Cerebral edema; K21.9 Gastro-esophageal reflux disease without esophagitis; R26.2 Difficulty in walking, not elsewhere classified; R53.1 Weakness; I25.10 Atherosclerotic heart disease of native coronary artery without angina pectoris; G47.00 Insomnia, unspecified; F17.200 Nicotine dependence, unspecified, uncomplicated; F41.1 Generalized anxiety disorder; H53.8 Other visual disturbances; Z79.899 Other long term (current) drug therapy; Z91.040 Latex allergy status; Z88.8 Allergy status to other drugs, medicaments and biological substances; F32.A Depression, unspecified; L21.8 Other seborrheic dermatitis; G62.9 Polyneuropathy, unspecified

== ENCOUNTER 2025-08-15 00:13 | Emergency (ER) | payer MEDICAID, OTHER ==
[~2025-08-15] VITALS: Ht 177.8 cm; Wt 81.8 kg
[~2025-08-15 00:13] MED LIST changes: +CLOT1CRE56 TOP; +FLUO-365 PO; +FLUO1TAB3 PO; +GABA-1172 PO; +HYDR-643 PO; +HYDR2.5C TOP; +PANT40TA29 PO; +SULF500T56 PO; +TRAZ-257 PO
[2025-08-15 00:36] VITALS: TEMP 98.3
[2025-08-15 00:49] LABS: BASO # 0.1 10^3/uL (0.0-0.2); BASO % 0.5 % (0.0-1.0); EOS # 0.1 10^3/uL (0.0-0.5); EOS % 0.5 % (0.0-3.0); LYMPH # 1.1 10^3/uL (1.5-5.0); LYMPH % 6.6 % (24.0-44.0); MONO # 1.1 10^3/uL (0.0-0.8); MONO % 6.8 % (2.0-8.0); NEUTROPHILS # 13.9 10^3/uL (1.5-8.5); NEUTROPHILS % 85.2 % (36.0-66.0); PLATELET COUNT, AUTOMATED 288 10^3/uL (150-450)
[2025-08-15 01:11] LABS: CK-MB VALUE MASS < 1.0 NG/ML (<3.6)
[2025-08-15 01:14] LABS: ALT/SGPT 26 U/L (7.0-40); AST/SGOT 19 U/L (<34); CALCIUM LEVEL 9.8 MG/DL (8.5-10.1); CARBON DIOXIDE LEVEL 26 MMOL/L (20-31); CHLORIDE LEVEL 107 MMOL/L (98-107); CREATININE FOR GFR 1.04 MG/DL (0.70-1.30); GLOMERULAR FILTRATION RATE > 90.0 (>60); POTASSIUM SERUM 3.9 MMOL/L (3.5-5.1); SODIUM LEVEL 144 MMOL/L (136-145)
[2025-08-15 01:27] LABS: CPK CREATINE PHOSPHOKINASE 49 U/L (46-171)
[2025-08-15] MEDS ORDERED: ISOVUE-370 76% 100 ML VIAL As Ordered ONE (01:28)
[2025-08-15 02:55] LABS: CK-MB VALUE MASS < 1.0 NG/ML (<3.6)
[2025-08-15 02:56] LABS: CPK CREATINE PHOSPHOKINASE 41 U/L (46-171)
[2025-08-15] MEDS ORDERED: PROM25TA12 PO (04:49)
[2025-08-15 04:58] VITALS: O2SAT 96
[2025-08-15 05:00] VITALS: BP 140/80
== END 2025-08-15 05:19 | disposition home or self-care (01) ==
LOC: M ED 00:13 → EDBD 00:13 → M ED 05:19
DX: K52.9 Noninfective gastroenteritis and colitis, unspecified (principal); R91.1 Solitary pulmonary nodule; K44.9 Diaphragmatic hernia without obstruction or gangrene; N20.0 Calculus of kidney; N28.1 Cyst of kidney, acquired; F17.200 Nicotine dependence, unspecified, uncomplicated; Z21 Asymptomatic human immunodeficiency virus [HIV] infection status; F90.9 Attention-deficit hyperactivity disorder, unspecified type; K21.9 Gastro-esophageal reflux disease without esophagitis; Z88.8 Allergy status to other drugs, medicaments and biological substances; Z79.1 Long term (current) use of non-steroidal anti-inflammatories (NSAID); Z79.899 Other long term (current) drug therapy
CPT/HCPCS: 74177; 80048; 80076; 82550; 82553; 83605; 83690; 84484; 85025; 87486; 87581; 87633; 87798; 93005; 93041; 96374; 99285; J2550; Q9967